=== PATIENT | female | born 1950 | race Caucasian/White ===

== ENCOUNTER → 2017-01-23 | Outpatient (CLI) | payer MEDICARE ==
[~2017-01-23] MED LIST: GLIPIZIDE10 MG PO; METFORMIN1000 MG PO
[2017-01-23 10:38] LABS: BUN 25 mg/dL (7-18)
[2017-01-23 10:39] LABS: GFR (ESTIMATED) 62 ML/MIN (59-)
== END ==
LOC: LAB 09:06
PROVIDERS: Physician Assistant
DX: E11.9 Type 2 diabetes mellitus without complications (principal); I10 Essential (primary) hypertension; E78.2 Mixed hyperlipidemia